=== PATIENT | female | born 1945 | race Two or more races ===

== ENCOUNTER 2023-04-29 09:14 | Outpatient (CLI) | payer OTHER | END 2023-04-29 09:27 | disposition home or self-care (01) | LOC: TOM 09:14 | PROVIDERS: ATTEND Internal Medicine Cardiovascular Disease | DX: D04.0 Carcinoma in situ of skin of lip (principal); R10.9 Unspecified abdominal pain; N39.0 Urinary tract infection, site not specified ==

== ENCOUNTER 2024-08-15 17:12 | Emergency (ER) | payer OTHER ==
[~2024-08-15] VITALS: Ht 160 cm; Wt 68.0 kg
[2024-08-15] MEDS ORDERED: 0.9 % SODIUM CHLORIDE 1,000 ML IV STA (18:59)
[2024-08-15] MEDS ORDERED: KETOROLAC TROMETHAMINE 30 MG VIAL IV ONE (19:00)
[2024-08-15] MEDS ORDERED: FAMOTIDINE/PF 20 MG/2 ML VIAL IV ONE (19:00)
[2024-08-15] MEDS ORDERED: KETOROLAC TROMETHAMINE 30 MG VIAL ONE (19:12)
[2024-08-15] MEDS ORDERED: FAMOTIDINE/PF 20 MG/2 ML VIAL ONE (19:12)
[2024-08-15 19:42] LABS: BASO % 0.3 % (0.1-1.2); EOS # 0.06 (0.04-0.54); EOS % 0.6 % (0.7-7.0); HEMATOCRIT 41.1 % (34.1-44.9); HEMOGLOBIN 13.6 g/dL (11.2-15.7); LYMPH # 2.01 (1.18-3.74); LYMPH % 18.7 % (19.3-53.1); MEAN CORPUSCULAR HEMOGLOBIN 28.6 pg (25.6-32.2); MONO # 0.54 (0.24-0.82); NEUT # 8.08 (1.56-6.13); NEUT % 75.1 % (34.0-71.1); PLATELET COUNT 258 K/uL (163-369); RED BLOOD COUNT 4.76 M/uL (3.93-5.22); RED CELL DISTRIBUTION WIDTH 13.5 % (11.6-14.4)
[2024-08-15 20:02] LABS: INR 1.11; PARTIAL THROMBOPLASTIN TIME 30.2 SECONDS (22.0-34.0)
[2024-08-15 20:09] LABS: ALBUMIN 2.9 gm/dL (3.4-5.0); CALCIUM 9.2 mg/dL (8.5-10.1); CREATININE SERUM 0.6 mg/dL (0.55-1.02); GFR 96.19; TOTAL PROTEIN 6.9 gm/dL (6.4-8.2)
[2024-08-15 20:47] LABS: POTASSIUM 2.03 mEq/L (3.5-5.1)
[2024-08-15] MEDS ORDERED: POTASSIUM CHLORIDE IN 0.9%NACL 40 MEQ/1,000 ML PIGGYBAG IV ONE (21:30)
[2024-08-15] MEDS ORDERED: ONDANSETRON HCL 2 MG/ML VIAL IV ONE (22:00)
[2024-08-15] MEDS ORDERED: PIPERACILLIN/TAZOBACTAM SODIUM 3.375 GM VIAL IV ONE ×2 (22:00→22:36)
== END 2024-08-15 22:49 | disposition designated cancer center or children's hospital (05) ==
LOC: ER 17:12
PROVIDERS: Emergency Medicine
DX: K56.2 Volvulus (principal); E87.6 Hypokalemia